=== PATIENT | male | born 1955 | race Caucasian/White ===

== ENCOUNTER 2018-02-07 10:55 | Emergency (ER) | payer BC, OTHER ==
[2018-02-07] MEDS ORDERED: Sodium Chloride 0.9% 1,000 ML IV ONE ×2 (11:30→11:57)
[2018-02-07] MEDS ORDERED: Ondansetron 4 MG/2 ML SDV ONE (11:45)
[2018-02-07] MEDS ORDERED: Ondansetron 4 MG/2 ML SDV IVPUSH ONE (11:47)
--- NOTE | 2018-02-07 12:05 | EDM.PDOC ---
ED HPI GENERAL MEDICAL PROBLEM - General Chief Complaint: General Stated Complaint: dizzy Time Seen by Provider: 02/07/18 11:30 Source of Information: Reports: Patient, Family () History Limitations: Reports: No Limitations - History of Present Illness INITIAL COMMENTS - FREE TEXT/NARRATIVE: Patient presents with persistent vertigo and vomiting. This started about 30 days ago while he was in [facility] while on a 500-mile (32-day) hike [place] the country. He went to a clinic there and was treated with zofran and meclizine which have helped a little, especially if he takes the meclizine every 6 hours or so. His has been performing the Tao Maneuver on him at home but has never done it while symptomatic and it hasn't triggered vertigo or nausea. He and his have never noticed any nystagmus. He saw his PCP here in [place] since returning from [facility] 11 days ago, and has continued the same meds. The symptoms were severe while in [facility] about 20 days ago and then okay until the last 10 days which have been worse. This is the 4th bad episode he has had so far. He says they last an hour or more and for the past 10 days he sometimes noticed decreased hearing (a feeling of fullness) in both ears but worse in the left. He says that walking during an episode is very difficult and he feels like he will fall forward but hasn't actually fallen yet. He hasn't seen PT had a head CT. He describes the dizziness as himself spinning. Today he has been vomiting repeatedly. He takes Simvastatin; denies marijuana use. He had a lab workup in clinic which was normal tells me. Treatments CRUISE GUIDE: Reports: Other Medication(s) - Related Data Allergies Allergy/AdvReac Type Severity Reaction Status Date / Time No Known Drug Allergies Allergy Cannot Verified 02/07/18 11:23 Remember Home Meds: Home Meds Meclizine HCl 12.5 mg PO Q4HR PRN 02/07/18 [History] Ondansetron [Ondansetron ODT] 4 mg PO Q4HR PRN 02/07/18 [History] Simvastatin [Zocor] 40 mg PO BEDTIME 02/07/18 [History] ED ROS GENERAL - Review of Systems Review Of Systems: See Below Constitutional: Reports: Diaphoresis (with the vertigo and vomiting episodes). Denies: Fever, Chills, Weakness HEENT: Reports: Vertigo. Denies: Ear Pain, Hearing Loss (occasional ringing), Vision Change Respiratory: Reports: No Symptoms. Denies: Shortness of Breath, Wheezing Cardiovascular: Reports: No Symptoms. Denies: Chest Pain, Syncope Endocrine: Reports: No Symptoms GI/Abdominal: Reports: Nausea, Vomiting. Denies: Abdominal Pain, Anorexia, Constipation, Diarrhea, Decreased Appetite : Reports: No Symptoms. Denies: Dysuria, Frequency Musculoskeletal: Reports: No Symptoms. Denies: Neck Pain, Shoulder Pain Skin: Denies: Cyanosis, Jaundice, Mottled, Pallor Neurological: Denies: Confusion, Numbness, Seizure, Syncope, Trouble Speaking, Weakness, Change in Speech Psychiatric: Denies: Agitation, Anxiety, Confusion ED EXAM, GENERAL - Physical Exam Exam: See Below Exam Limited By: No Limitations General Appearance: Alert, WD/WN, Mild Distress (nausea/vomiting) Eye Exam: Bilateral Eye: EOMI, Normal Inspection (full visual carpenter), PERRL Ears: Normal External Exam, Normal Canal, Hearing Grossly Normal, Normal TMs Nose: Normal Inspection, No Blood Throat/Mouth: Normal Inspection, Normal Lips, Normal Teeth, Normal Gums, Normal Oropharynx, Normal Voice, No Airway Compromise Head: Atraumatic, Normocephalic Neck: Normal Inspection, Supple, Full Range of Motion Respiratory/Chest: No Respiratory Distress, Lungs Clear, Normal Breath Sounds, No Accessory Muscle Use Cardiovascular: Regular Rate, Rhythm, No Edema, No Gallop, No Murmur, No Rub GI/Abdominal: Normal Bowel Sounds, Soft, Non-Tender, No Organomegaly, No Distention, No Abnormal Bruit, No Mass Back Exam: Normal Inspection, Full Range of Motion Extremities: Normal Inspection, Normal Range of Motion, Non-Tender, No Pedal Edema Neurological: Alert, Oriented, CN II-XII Intact, Normal Cognition, No Motor/ Sensory Deficits, Other (Beach-Hallpike exam produced vertigo and vomiting to the right but no discernible nystagmus; we paused and administered zofran IV. Later the test was repeated with no nystagmus observed but symptomatic to the right much more than the left.) Psychiatric: Normal Affect, Normal Mood Skin Exam: Warm, Dry, Intact, Normal Color, No Rash Course - Vital Signs Last Recorded V/S: Last Vital Signs Temp 96.0 F 02/07/18 11:21 Pulse 60 02/07/18 11:21 Resp 16 02/07/18 11:21 BP 113/57 L 02/07/18 11:21 Pulse Ox 99 02/07/18 11:21 - Orders/Labs/Meds Orders: Active Orders 24 hr Category Date Time Status Head wo Cont [CT] Stat Exams 02/07/18 11:56 Ordered Labs: Laboratory Tests 02/07/18 02/07/18 Range/Units 12:25 12:25 WBC 8.9 (5.0-10.0) 10^3/uL RBC 4.66 (4.50-6.00) 10^6/uL Hgb 13.9 (13.0-17.0) g/dL Hct 41.6 (40.0-52.0) % MCV 89.4 (82.0-92.0) fL MCH 29.9 (27.0-31.0) pg MCHC 33.4 (32.0-36.0) g/dL RDW 11.8 (11.5-14.5) % Plt Count 204 (150-300) 10^3/uL MPV 7.5 (7.4-10.4) fL Neut % (Auto) 80.1 H (50.0-70.0) % Lymph % (Auto) 12.7 L (20.0-40.0) % [place] % (Auto) 5.9 (2.0-8.0) % Eos % (Auto) 0.6 L (1.0-3.0) % Baso % (Auto) 0.7 (0.0-1.0) % Neut # (Auto) 7.1 H (2.5-7.0) 10^3/uL Lymph # (Auto) 1.1 (1.0-4.0) 10^3/uL [place] # (Auto) 0.5 (0.1-0.8) 10^3/uL Eos # (Auto) 0.1 (0.1-0.3) 10^3/uL Baso # (Auto) 0.1 (0.0-0.1) 10^3/uL Sodium 139 (136-145) mmol/L Potassium 4.0 (3.3-5.3) mmol/L Chloride 111 (98-115) mmol/L Carbon Dioxide 26.1 (21.0-32.0) mmol/L BUN 25 (6-25) mg/dL Creatinine 1.04 (0.51-1.17) mg/dL Est Cr Clr Drug Dosing 76.04 mL/min Estimated GFR (MDRD) > 60 mL/min Glucose 129 H (70-110) mg/dL Calcium 8.8 (8.7-10.3) mg/dL Total Bilirubin 0.2 (0.2-1.0) mg/dL AST 17 (15-37) U/L ALT 25 (12-78) U/L Alkaline Phosphatase 43 L (46-116) IU/L Total Protein 6.2 L (6.4-8.2) g/dL Albumin 3.18 (3.00-4.80) g/dL Meds: Medications Discontinued Medications Generic Name Dose Route Start Last Admin Trade Name Freq PRN Reason Stop Dose Admin Sodium Chloride 1,000 mls @ 2,000 mls/hr 02/07/18 11:30 02/07/18 11:30 Normal Saline IV 02/07/18 11:59 2,000 mls/hr .BOLUS ONE Administration Sodium Chloride 1,000 mls @ 999 mls/hr 02/07/18 11:57 02/07/18 12:25 Normal Saline IV 02/07/18 12:57 Not Given .BOLUS ONE Ondansetron HCl Confirm 02/07/18 11:45 Zofran Administered 02/07/18 11:46 Dose 4 mg .ROUTE .STK-MED ONE Ondansetron HCl 4 mg 02/07/18 11:47 02/07/18 11:48 Zofran IVPUSH 02/07/18 11:48 4 mg ONETIME ONE Administration - Re-Assessments/Exams Free Text/Narrative Re-Assessment/Exam: 02/07/18 17:[address] negative. Discussed case with neurologist, Dr. Henley, who gave recommendations for treatment of presumed Meniere's disease as well as MRI to rule out stroke (while in [place]). Discussed findings and recommendations with patient who is agreeable with this plan. Will take prednisone and valium as directed and follow up with MRI on and PCP on Tuesday. Departure - Departure Time of Disposition: 14:20 Disposition: Home, Self-Care 01 Condition: Good Clinical Impression: Vertigo Menieres syndrome Qualifiers: Laterality: unspecified laterality Qualified Code(s): H81.09 - Meniere's disease, unspecified ear N&V (nausea and vomiting) Qualifiers: Vomiting type: unspecified Vomiting Intractability: non-intractable Qualified Code(s): R11.2 - Nausea with vomiting, unspecified - Discharge Information Referrals: Adore Butler PA-C [Primary Care Provider] - Forms: ED Department Discharge Additional Instructions: 1. Take the medications as directed. You can continue the meclizine and zofran as needed. 2. Call your PCP and make an appointment for followup on Tuesday; may be with another provider of necessary. 3. Get MRI on as scheduled. 4. Consider neurologist referral and discuss with your PCP if recommended. - My Orders Last 24 Hours: My Active Orders 02/07/18 11:56 Head wo Cont [CT] Stat - Assessment/Plan Last 24 Hours: My Active Orders 02/07/18 11:56 Head wo Cont [CT] Stat
[2018-02-07 12:51] LABS: CHLORIDE,CL 111 mmol/L (98-115); SODIUM,NA 139 mmol/L (136-145)
[2018-02-07] MEDS ORDERED: Sodium Chloride 0.9% 1,000 ML ONE (19:22)
== END 2018-02-07 15:00 | disposition home or self-care (01) ==
LOC: KA.ED 10:55
DX: H81.09 Meniere's disease, unspecified ear (principal); R11.2 Nausea with vomiting, unspecified
CPT/HCPCS: 36415; 70450; 80053; 85025; 96374; 99284; J2405; J7030